=== PATIENT | male | born 1975 | race American Indian/Alaskan Native ===

== ENCOUNTER 2017-10-16 09:19 | Emergency (ER) | payer SELFPAY ==
--- NOTE | 2017-10-16 16:42 | Emergency Department Report ---
HPI - General Chief Complaint: Upper Respiratory Infection Time Seen by Provider: 10/16/17 16:10 - HPI HPI: Patient reports flulike symptoms that started 2 days ago. Patient said he is on dialysis and he was supposed to get dialyzed today but they refuse to dialyze him because of his symptoms. Denies any pain. Report cough and chest congestion. Denies any shortness of breath. Reports fever and chills. No over -the-counter medication taken. ED Past Medical Hx - Past Medical History Previous Medical History?: Yes Hx Hypertension: Yes Hx CVA: Yes (x2) Hx Heart Attack/AMI: No Hx Congestive Heart Failure: Yes Hx Diabetes: Yes Hx Renal Disease: Yes Hx Asthma: No Hx COPD: No Hx Tuberculosis: No Hx HIV: No Additional medical history: diabetic eye problems, coronary artery disease - Surgical History Past Surgical History?: Yes Additional Surgical History: hand reconstruction r) - Family History Family history: hypertension - Social History Smoking Status: Never Smoker Substance Use Type: None - Medications Home Medications: Home Medications Medication Instructions Recorded Confirmed Last Taken Type Aspirin [Aspirin TAB] 325 mg PO QDAY #30 tablet 04/08/15 Unknown Rx AtorvaSTATin [Lipitor] 80 mg PO QHS 30 Days tablet 04/08/15 Unknown Rx Carvedilol [Coreg] 25 mg PO BID #60 tablet 04/08/15 Unknown Rx Doxazosin [Cardura] 2 mg PO QDAY #30 tablet 04/08/15 Unknown Rx Insulin Aspart Prot/Aspart(Nf) 10 units SUB-Q BIDDIAB 30 Days 04/08/15 Unknown Rx [NovoLOG Mix 70/30 VIAL] units NIFEdipine XL [Procardia Xl] 60 mg PO Q12HR #60 tablet 04/08/15 Unknown Rx Spironolactone 25 mg PO DAILY #30 tablet 04/08/15 Unknown Rx Valsartan [Diovan] 160 mg PO BID #60 tablet 04/08/15 Unknown Rx Cetirizine HCl [ZyrTEC] 10 mg PO QDAY 10 Days #10 capsule 10/16/17 Unknown Rx Fluticasone [Flonase] 1 spray NS QDAY 10 Days #1 bottle 10/16/17 Unknown Rx Oseltamivir [Tamiflu] 75 mg PO QDAY 5 Days #5 capsule 10/16/17 Unknown Rx guaiFENesin/CODEINE [Robitussin AC] 5 ml PO Q8H PRN 75 Days #15 10/16/17 Unknown Rx oral.liqd ED Review of Systems ROS: Stated complaint: FLU LIKE SYMPTOMS Other details as noted in HPI Comment: All other systems reviewed and negative Constitutional: chills, fever Eyes: denies: eye discharge ENT: congestion. denies: ear pain, throat pain, dental pain Respiratory: cough. denies: orthopnea, shortness of breath, SOB with exertion, SOB at rest, stridor, wheezing Cardiovascular: denies: chest pain, palpitations, dyspnea on exertion, edema, syncope, paroxysmal nocturnal dyspnea Gastrointestinal: denies: nausea, vomiting Musculoskeletal: myalgia. denies: back pain, joint swelling, arthralgia Skin: denies: rash Neurological: denies: headache, weakness, numbness, paresthesias, confusion, abnormal gait, vertigo Physical Exam - Physical Exam Vital Signs: Vital Signs 10/16/17 10:42 Temperature 99.5 F Pulse Rate 87 Respiratory 18 Rate Blood Pressure 163/94 O2 Sat by Pulse 100 Oximetry Vital Signs 10/16/17 10/16/17 10/16/17 10:42 17:40 18:10 Temperature 99.5 F Pulse Rate 87 92 H Respiratory 18 18 18 Rate Blood Pressure 163/94 153/73 O2 Sat by Pulse 100 100 Oximetry General: This is a 42-year-old male well-nourished well-developed in no acute distress. Physical Exam: Head: Normocephalic atraumatic Ears:BIateral TM congested without erythema and loss of bony landmarks. Arun EAC with normal exam. No mastoid bone tenderness. Mouth: Moist, no pharyngeal erythema or exudate . No tonsillar erythema or exudate. UVULA midline and oral airways patent. No peritonsillar abscess Neck: Nontender to palpate, supple, normal range of motion. No adenopathy. No c- spine tenderness. Nose: Bilateral nasal mucosa congested with clear drainage. Maxillary and frontal sinuses non-tender to palpate. Eyes: Arun Sclerae and conjunctiva without injection. Bilateral pupils equal and reactive to light. Bilateral lids are normal. Normal accommodation.BEOMI Lungs: Clear to auscultate bilaterally, no rhonchi wheezes or rales. Normal work of breathing and no chest wall tenderness. Dry cough Extremity: No clubbing, cyanosis or edema. Positive pulses all extremities. No neurovascular compromise CV: S1, S2. regular rate and rhythm negative murmur. Capillary refill is less than 3 seconds Skin: Clean dry and intact, no rashes or lesions Psych: Normal mood and behavior ED Course Vital Signs 10/16/17 10:42 Temperature 99.5 F Pulse Rate 87 Respiratory 18 Rate Blood Pressure 163/94 O2 Sat by Pulse 100 Oximetry Vital Signs 10/16/17 10/16/17 10/16/17 10:42 17:40 18:10 Temperature 99.5 F Pulse Rate 87 92 H Respiratory 18 18 18 Rate Blood Pressure 163/94 153/73 O2 Sat by Pulse 100 100 Oximetry - Reevaluation(s) Reevaluation #1: 10/16/17 16:51 Influenza A and B sent, Tylenol 650 mg ordered to be given. Patient awaiting x- ray. Reevaluation #2: 10/16/17 17:40 Influenza A and B and chest x-ray without any acute cardio pulmonary findings ED Medical Decision Making - Lab Data Influenza A and B- - Radiology Data Radiology results: report reviewed Chest x-ray shows no acute cardiopulmonary findings - Medical Decision Making ED course: Lisa with presentation of fever and cough/congestion 2 days. He said they did not do his dialysis today because they thought he might have the flu. Patient with acute viral syndrome, cough and congestion. I discussed patient that his influenza A and B is negative but he has symptoms of the flu and I will treat him with Tamiflu, Zyrtec, flonase and Guaifenesin with codeine. He voiced understanding and off discharge diagnoses, treatment plan and need to follow up with his primary care physician which she does have one in 2 days and/or to return to the emergency room sooner if the develops worsening symptoms. Pt was given Tylenol 650 mg in emergency room. Discharged home in stable condition with prescription for guaifenesin with codeine, Tamiflu , Zyrtec and Flonase. Tamiflu is renal dosed to 75 mg once daily up-to-date Critical care attestation.: If time is entered above; I have spent that time in minutes in the direct care of this critically ill patient, excluding procedure time. ED Disposition Clinical Impression: Acute viral syndrome, URI with cough and congestion, Fever chills Disposition: TO HOME OR SELFCARE Is pt being admited?: No Does the pt Need Aspirin: No Condition: Stable Instructions: Fever in Adults (ED), Viral Syndrome (ED), Acute Cough (ED) Additional Instructions: Please see discharge instructions on fever, viral syndrome. Please be careful not to fluid overload on and stick to your daily fluid intake per your [employer] since here on dialysis. Please take medication as prescribed Do not drive or operate heavy machinery while taking cough medicine that this medication causes drowsiness Prescriptions: Cetirizine HCl [ZyrTEC] 10 mg PO QDAY 10 Days #10 capsule Fluticasone [Flonase] 1 spray NS QDAY 10 Days #1 bottle guaiFENesin/CODEINE [Robitussin AC] 5 ml PO Q8H PRN 75 Days #15 oral.liqd PRN Reason: Cough Oseltamivir [Tamiflu] 75 mg PO QDAY 5 Days #5 capsule Referrals: PRIMARY CARE, [Primary Care Provider] - 3-5 Days
[2017-10-16] MEDS ORDERED: TYLENOL PO ONE (16:44)
--- NOTE | 2017-10-16 17:17 | XRay Report ---
FINAL REPORT EXAM: XR CHEST ROUTINE 2V HISTORY: cough and fever TECHNIQUE: Frontal and lateral chest radiographs. PRIORS: None. FINDINGS: The cardiomediastinal silhouette is normal. No focal consolidation. No pleural effusion. No pneumothorax. No acute osseous abnormality. IMPRESSION: No acute cardiopulmonary process.
[2017-10-16 18:18] VITALS: BP 153/73
== END 2017-10-16 18:15 | disposition home or self-care (01) ==
LOC: ED 09:19
DX: J06.9 Acute upper respiratory infection, unspecified (principal); B34.9 Viral infection, unspecified; I13.2 Hypertensive heart and chronic kidney disease with heart failure and with stage 5 chronic kidney disease, or end stage renal disease; E11.22 Type 2 diabetes mellitus with diabetic chronic kidney disease; N18.6 End stage renal disease; I50.9 Heart failure, unspecified; Z99.2 Dependence on renal dialysis; Z79.4 Long term (current) use of insulin; Z86.73 Personal history of transient ischemic attack (TIA), and cerebral infarction without residual deficits; Z79.82 Long term (current) use of aspirin
CPT/HCPCS: 71046; 87400; 99283